=== PATIENT | female | born 1975 | race African-American/Black ===

== ENCOUNTER 2017-08-12 01:04 | Emergency (ER) | payer OTHER ==
[~2017-08-12] VITALS: Ht 170.2 cm; Wt 77.3 kg
[~2017-08-12 01:04] MED LIST: NOCURR
[2017-08-12] MEDS ORDERED: IBUPROFEN 800 MG TABLET PO ONE (03:15)
[2017-08-12] MEDS ORDERED: HYDROCODONE/ACETAMINOPHEN 5-325 MG TABLET PO ONE (03:15)
[2017-08-12 03:25] VITALS: BP 107/88
== END 2017-08-12 03:58 | disposition home or self-care (01) ==
LOC: EMS 01:05
DX: S82.64XA Nondisplaced fracture of lateral malleolus of right fibula, initial encounter for closed fracture (principal); W19.XXXA Unspecified fall, initial encounter; Y93.01 Activity, walking, marching and hiking; Y92.89 Other specified places as the place of occurrence of the external cause; Y99.8 Other external cause status
CPT/HCPCS: 29515; 99284